=== PATIENT | female | born 1980 | race American Indian/Alaskan Native ===

== ENCOUNTER 2017-10-30 08:40 | Emergency (ER) | payer OTHER ==
--- NOTE | 2017-10-30 09:08 | C.PDOC ---
History Of Present Illness 36 year old female presents to the ED c/o right hand/wrist, knee and left knee pain s/p falling [employer]. Patient states she was walking to work when she fell down , patient was walking when her left foot got caught on a pallet and she feel down. Patient reports she landed on her right hand, right knee and twisted her left ankle. Patient did not tried to ambulate on the scene. Patient has a history of B/L knee osteoarthritis, ACL/meniscus. Patient did not take any pain medications [employer]. Patient denies other associated injuries, LOC, headache, dizziness, weakness, numbness. SP FALL [employer] CO R HAND/WRIST, R KNEE AND L ANKLE INJURY ONSET [employer] WHILE @ WORK. PS WALKING BETWEEN PALLETS, L FOOT CAUGHT ON PALLET FELL ONTO R SIDE. +R HAND FOOSH INJURY, R KNEE CONTUSION, TWISTED L ANKLE. PS DID NOT TRY AMBUL ON SCENE. DENIES OTHER ASSOC INJURY. HO CHRONIC B/L KNEE OA, ACL/MENISCUS ABN. NO PAIN MEDS [employer]ATOR EXAM NAD HEENT ATRAUM EXT RUE: +TEND PALM R HAND/THENAR AREA NO DEFORM; THUMB/FINGERS WNL; WRIST AROM WO DIFF. SUPINATION WO DIFF. R KNEE: AROM WO DIFF, NONTEND, NO GROSS ASYM. L ANKLE: AROM W PAIN, +DIF TEND MED MALL; NO DEFORM. SKIN INTACT NEURO INTACT REMAINDE RNEG - HPI Time Seen by Provider: 10/30/17 08:44 History Per: Patient History/Exam Limitations: no limitations Onset/Duration Of Symptoms: Hrs Injury Occurred (Timing): Just Before Arrival Location Of Injury: Right: Head, Left: Foot, Knee Severity: None Recent travel outside of the [place]: No Additional History Per: Patient Past Medical History Reviewed: Historical Data, Nursing Documentation, Vital Signs Vital Signs: Last Vital Signs Temp 98.3 F 10/30/17 08:47 Pulse 60 10/30/17 08:47 Resp 16 10/30/17 08:47 BP 151/88 H 10/30/17 08:47 Pulse Ox 98 10/30/17 10:35 - Medical History PMH: Anxiety, Asthma Surgical History: No Surg Hx Family History: States: Unknown Family Hx - Social History Hx Tobacco Use: No Hx Alcohol Use: Yes Hx Substance Use: No - Immunization History Hx Tetanus Toxoid Vaccination: No Hx Influenza Vaccination: No Hx Pneumococcal Vaccination: No Review Of Systems Constitutional: Negative for: Fever, Chills Cardiovascular: Negative for: Chest Pain Respiratory: Negative for: Shortness of Breath Gastrointestinal: Negative for: Abdominal Pain Musculoskeletal: Positive for: Hand Pain, Leg Pain, Foot Pain Skin: Negative for: Rash Neurological: Negative for: Weakness, Numbness, Headache Physical Exam - Physical Exam Appears: Non-toxic, No Acute Distress Skin: Normal Color, Warm, Dry Head: Atraumatic, Normacephalic Eye(s): bilateral: Normal Inspection Nose: No Discharge Oral Mucosa: Moist Neck: Normal ROM, Supple Chest: Symmetrical Cardiovascular: Rhythm Regular, No Murmur Respiratory: Normal Breath Sounds, No Rales, No Rhonchi, No Wheezing Gastrointestinal/Abdominal: Soft, No Tenderness, No Guarding, No Rebound Extremity: Normal ROM (right hand, riight knee, left ankle with some pain), Tenderness (pal of right hand/thenar area, diffuse tenderness medial malleolus left ankle), Capillary Refill (<2 seconds), No Deformity, No Swelling, Other ( right hand supination wo difficulty, ) Pulses: Left Radial: Normal, Right Radial: Normal, Left Dorsalis Pedis: Normal, Right Dorsalis Pedis: Normal Neurological/Psych: Oriented x3, Normal Motor, Normal Sensation ED Course And Treatment O2 Sat by Pulse Oximetry: 98 (On RA) Pulse Ox Interpretation: Normal - Other Rad l ankle X-Ray: Interpreted by Me (neg) R HAND X-Ray: Interpreted by Me (NEG) R WRIST X-Ray: Interpreted by Me (NEG) R KNEE X-Ray: Interpreted by Me (NEG) Medical Decision Making Medical Decision Making: Impression: fall, pain to right hand, right knee, left ankle Plan: * Motrin 600 mg PO * Tylenol 650 mg PO * Right knee X-Ray * Left ankle X-Ray * Right hand X-Ray * Right wrist X-Ray Disposition Counseled Patient/Family Regarding: Studies Performed, Diagnosis, Need For Followup - Disposition Referrals: YOUR,PMD [Other] Disposition: HOME/ ROUTINE Disposition Time: 10:32 Condition: IMPROVED Prescriptions: Ibuprofen [Motrin] 600 mg PO Q6 #30 tab Instructions: Ankle Sprain (DC), Wrist Sprain (DC) Forms: Work Excuse - Clinical Impression Clinical Impression: Ankle sprain, Multiple contusions - Scribe Statement The provider has reviewed the documentation as recorded by the Scribe Kleber Still All medical record entries made by the Scribe were at my direction and personally dictated by me. I have reviewed the chart and agree that the record accurately reflects my personal performance of the history, physical exam, medical decision making, and the department course for this patient. I have also personally directed, reviewed, and agree with the discharge instructions and disposition. Orthopedic Care Application Of:: Ankle Air Cast, Volar Splint
[2017-10-30 09:20] VITALS: BP 151/88; PULSE 60; RESP 16; TEMP 98.3; O2SAT 98
--- NOTE | 2017-10-30 10:17 | RAD ---
PROCEDURE: Right Knee Radiographs. HISTORY: TRAUMA COMPARISON: None. FINDINGS: BONES: Normal. No fracture. JOINTS: Normal. No osteoarthritis. JOINT EFFUSION: None. OTHER FINDINGS: None. IMPRESSION: Normal radiographs of the right knee.
--- NOTE | 2017-10-30 10:17 | RAD ---
PROCEDURE: Left Ankle Radiographs. HISTORY: TRAUMA COMPARISON: None FINDINGS: BONES: Normal. No fracture. JOINTS: Normal. No osteoarthritis. Ankle mortise maintained. Talar dome intact SOFT TISSUES: Normal. OTHER FINDINGS: None. IMPRESSION: Normal left ankle radiographs.
--- NOTE | 2017-10-30 10:18 | RAD ---
PROCEDURE: Right Hand Radiographs. HISTORY: TRAUMA COMPARISON: None. FINDINGS: BONES: Normal. No fracture. JOINTS: Normal. No osteoarthritic changes. SOFT TISSUES: Normal. OTHER FINDINGS: None. IMPRESSION: Normal right hand radiographs.
--- NOTE | 2017-10-30 14:42 | RAD ---
PROCEDURE: Right Wrist Radiographs. HISTORY: TRAUMA COMPARISON: None. FINDINGS: BONES: Normal. No fracture. JOINTS: Normal. No dislocation. SOFT TISSUES: Normal. OTHER FINDINGS: None. IMPRESSION: Normal right wrist radiographs.
== END 2017-10-30 11:13 | disposition home or self-care (01) ==
LOC: C.ER 08:40
DX: S93.402A Sprain of unspecified ligament of left ankle, initial encounter (principal); S60.221A Contusion of right hand, initial encounter; S80.01XA Contusion of right knee, initial encounter; W19.XXXA Unspecified fall, initial encounter; Y93.01 Activity, walking, marching and hiking